=== PATIENT | female | born 1990 | race Caucasian/White ===

== ENCOUNTER → 2021-03-29 12:52 | Outpatient (CLI) | payer OTHER, SELFPAY ==
[2021-03-31 22:36] LABS: AFP, Serum 42.6 ng/mL (.); Calc Gestational Age Ultrasound (.); Estriol, Free 0.87 ng/mL (.); Inhibin A, Dimeric 105.11 pg/mL (.); Inhibin A, MoM 0.84 (.); Maternal Ethnicity Caucasian (.); Maternal Weight 217 lbs (.); Number of Fetuses No (.); OSBR Risk 1 IN 4273 (.); Results Report (.); Test Results *Screen Negative* (.); hCG, MoM 1.31 (.); hCG, Serum 33388 mIU/mL (.)
== END ==
PROVIDERS: Referring Provider Specialist; Visit Provider Specialist
DX: Z34.02 Encounter for supervision of normal first pregnancy, second trimester (principal); Z3A.17 17 weeks gestation of pregnancy
CPT/HCPCS: 36415; 82105; 82677; 84702; 86336

== ENCOUNTER 2021-04-02 19:45 | Emergency (ER) | payer OTHER, SELFPAY ==
[2021-04-02 19:52] VITALS: BP 133/81; PULSE 126; RESP 20; TEMP 37.8; O2SAT 97; BMI 35.6
[2021-04-02 20:16] LABS: Bacteria Urine None Seen; RBC Urine None Seen (0-5/HPF); WBC Urine None Seen (0-5/HPF)
[2021-04-02 20:21] LABS: COVID19 -Nasal RAPID Negative (Negative)
[2021-04-02 20:25] LABS: Bilirubin Urine UA NEGATIVE (NEGATIVE); Color Urine UA YELLOW; Glucose Urine UA NEGATIVE (Negative); Ketones Urine UA TRACE (NEGATIVE); Leukocyte Esterase Urine UA NEGATIVE (NEGATIVE); Nitrite Urine UA NEGATIVE (Negative); Occult Blood Urine UA NEGATIVE (Negative); Protein Urine UA NEGATIVE (Negative); Specific Gravity Urine UA 1.015 (1.000-1.035); Urobilinogen Urine UA 0.2 E.U./dL (0.2)
[2021-04-02 20:26] LABS: Appearance Urine UA CLOUDY; Squamous Epithelial Cell Urine 0-1 /HPF (0-5/HPF)
[2021-04-02 20:27] LABS: Amorphous Sediment Urine 3+; Culture Indicated Urine Cult Not Indicated
[2021-04-02] MEDS: ACETAMINOPHEN 325 MG TABLET 650 MG PO (20:43)
--- NOTE | 2021-04-02 20:46 | ED_ITS ---
HPI - Fever General Chief Complaint: Fever Stated Complaint: Fever/ Time Seen by Provider: 04/02/21 20:39 Source: patient Mode of arrival: Ambulatory Limitations: no limitations History of Present Illness HPI Narrative: 30-year-old woman at 18 weeks gestational age presents complaining of fever since last night, not feeling well general upper abdominal pain today's notice in chills and aches. Nausea but no overt vomiting. She is able to keep fluids down. She is feeling the baby move and has no vaginal discharge, bleeding or cramping. She describes no cough or chest pain. She also notes that along the bra line on the left side in the mid axillary area she has an area of erythema that was draining earlier today Related Data Home Medications Medication Instructions Recorded Confirmed calcium carbonate 600 mg calcium 600 mg PO DAILY 03/08/21 03/09/21 (1,500 mg) tablet (Calcium) prenat.vits,silvina,pto-dfor-stzys 1 tab PO DAILY 03/08/21 03/09/21 Previous Rx's Medication Instructions Recorded cephalexin 500 mg capsule 500 mg PO TID 5 Days #15 cap 04/02/21 Allergies Allergy/AdvReac Type Severity Reaction Status Date / Time No Known Drug Allergies Allergy Unverified 03/08/21 14:31 Review of Systems Review of Systems Narrative: Remainder of complete review of systems is otherwise unremarkable except for that included in the HPI. Patient History Medical History Ovarian cyst (~01/2021) Surgical History Edson teeth extracted (~2011) Family History Father Hypertension Hyperlipidemia Twin Mother Migraine Grandfather Drowning Grandmother Heavy tobacco smoker COPD (chronic obstructive pulmonary disease) Grandfather Myocardial infarction Grandmother Lung cancer Cancer Family/Other Hyperlipidemia Hypertension Brother Chiari malformation Seizures Brother No problems noted. Sister No problems noted. 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 Able to give a complete and coherent history. Well-nourished well-developed HEENT: Moist mucous membranes, normal sclera with reactive pupils, Respiratory: Lungs are clear to auscultation, no wheezing no rales no rhonchi. Full and symmetrical air movement Chest: Mid axillary line left-sided nipple level area of cellulitis approximately 6 x 6 cm. There is a central space that does look like the area drained earlier today there is no palpable abscess remaining. Cardiac: Regular rate and rhythm no murmurs no bruits Abdomen: Soft, fundus just under the umbilicus, nontender, good bowel tones, no flank pain Skin: Warm and dry, no rashes Neurologic: Grossly neurologically intact with no obvious asymmetries or abnormalities Extremities: No trauma, well perfused Psych: Cooperative, appropriate insight and affect Initial Vital Signs Initial Vital Signs: Vital Signs Temperature 100.0 F H 04/02/21 19:52 Pulse Rate 126 H 04/02/21 19:52 Respiratory Rate 20 04/02/21 19:52 Blood Pressure 133/81 04/02/21 19:52 Pulse Oximetry 97 04/02/21 19:52 Course Orders Ordered: Discontinued Medications Acetaminophen (Acetaminophen 325 Mg Tablet) 650 mg PO NOW ONE Stop: 04/02/21 20:40 Last Admin: 04/02/21 20:43 Dose: 650 mg Documented by: CHRISTIN Sodium Chloride (Normal Saline 0.9%) 1,000 mls @ 1,000 mls/hr IV BOLUS ONE Stop: 04/02/21 21:55 Last Infusion: 04/02/21 22:19 Dose: 0 mls/hr Documented by: Admin: 04/02/21 21:18 Dose: 1,000 mls/hr Documented by: TARIK Ceftriaxone Sodium 2,000 mg/ (Sodium Chloride) 100 mls @ 200 mls/hr IV NOW ONE Stop: 04/02/21 20:58 Last Infusion: 04/02/21 21:52 Dose: 0 mls/hr Documented by: Admin: 04/02/21 21:19 Dose: 200 mls/hr Documented by: TARIK Vital Signs Vital signs: Vital Signs - 8 hr 04/02/21 19:52 04/02/21 21:49 Temperature 100.0 F H 97.7 F Pulse Rate 126 H Respiratory Rate 20 Blood Pressure 133/81 Pulse Oximetry 97 MDM - Fever Lab Data Result diagrams: 04/02/21 21:10 04/02/21 21:10 Labs: Lab Results 04/02/21 04/02/21 04/02/21 Range/Units 20:00 20:10 21:10 WBC 8.5 (4.5-11.0) X10^3/uL RBC 4.23 (4.0-5.2) X10^6/uL Hgb 12.5 (12.0-16.0) g/dL Hct 36.7 (36-46) % MCV 86.8 (80-100) fL MCH 29.6 (26-34) PG MCHC 34.1 (30-36) % RDW 13.1 (11.6-14.8) % Plt Count 194 (150-400) X10^3/uL Neut % (Auto) 77.1 H (50-75) % Lymph % (Auto) 9.0 L (25-40) % [place] % (Auto) 9.4 (3-14) % Eos % (Auto) 3.9 (2-4) % Baso % (Auto) 0.6 (0-2) % Neut # (Auto) 6600 (6355-0749) /uL Lymph # (Auto) 800 L (2291-1707) /uL [place] # (Auto) 800 (0-900) /uL Eos # (Auto) 300 (0-450) /uL Baso # (Auto) 0 (0-100) /uL Sodium (137-145) mmol/L Potassium (3.4-5.1) mmol/L Chloride (98-107) mmol/L Carbon Dioxide (22-32) mmol/L BUN (7-17) mg/dL Creatinine (0.52-1.04) mg/dL Estimated GFR (>60) mL/min BUN/Creatinine Ratio (6-22) Glucose (70-100) mg/dL Lactate (0.7-2.1) mmol/L Calcium (8.4-10.2) mg/dL Total Bilirubin (0.2-1.3) mg/dL AST (14-36) IU/L ALT (<35) IU/L Alkaline Phosphatase (38-126) U/L Total Protein (6.3-8.2) g/dL Albumin (3.5-5.0) g/dL Globulin (1.7-4.1) g/dL Albumin/Globulin Ratio (1.0-2.8) Urine Color Yellow Urine Appearance Cloudy Urine pH 8.0 (4.5-8.0) Ur Specific [place] 1.015 (1.000-1.035) Urine Protein Negative (Negative) Urine Glucose (UA) Negative (Negative) g/dL Urine Ketones Trace H (NEGATIVE) Urine Occult Blood Negative (Negative) Urine Nitrate Negative (Negative) Urine Bilirubin Negative (NEGATIVE) Urine Urobilinogen 0.2 (0.2) E.U./dL Ur Leukocyte Esterase Negative (NEGATIVE) Urine RBC None seen (0-5/HPF) Urine WBC None seen (0-5/HPF) Ur Squamous Epith Cells 0-1 /hpf (0-5/HPF) Amorphous Sediment 3+ Urine Bacteria None seen (None) Ur Culture Indicated? Cult not indicated SARS-CoV-2 (PCR) Negative (Negative) 04/02/21 04/02/21 Range/Units 21:10 21:10 WBC (4.5-11.0) X10^3/uL RBC (4.0-5.2) X10^6/uL Hgb (12.0-16.0) g/dL Hct (36-46) % MCV (80-100) fL MCH (26-34) PG MCHC (30-36) % RDW (11.6-14.8) % Plt Count (150-400) X10^3/uL Neut % (Auto) (50-75) % Lymph % (Auto) (25-40) % [place] % (Auto) (3-14) % Eos % (Auto) (2-4) % Baso % (Auto) (0-2) % Neut # (Auto) (5765-2487) /uL Lymph # (Auto) (2249-4062) /uL [place] # (Auto) (0-900) /uL Eos # (Auto) (0-450) /uL Baso # (Auto) (0-100) /uL Sodium 131 L (137-145) mmol/L Potassium 3.6 (3.4-5.1) mmol/L Chloride 105 (98-107) mmol/L Carbon Dioxide 19 L (22-32) mmol/L BUN 7 (7-17) mg/dL Creatinine 0.58 (0.52-1.04) mg/dL Estimated GFR > 60.0 (>60) mL/min BUN/Creatinine Ratio 12.1 (6-22) Glucose 107 H (70-100) mg/dL Lactate 0.7 (0.7-2.1) mmol/L Calcium 9.0 (8.4-10.2) mg/dL Total Bilirubin 0.4 (0.2-1.3) mg/dL AST 30 (14-36) IU/L ALT 36 H (<35) IU/L Alkaline Phosphatase 68 (38-126) U/L Total Protein 7.0 (6.3-8.2) g/dL Albumin 3.6 (3.5-5.0) g/dL Globulin 3.4 (1.7-4.1) g/dL Albumin/Globulin Ratio 1.1 (1.0-2.8) Urine Color Urine Appearance Urine pH (4.5-8.0) Ur Specific [place] (1.000-1.035) Urine Protein (Negative) Urine Glucose (UA) (Negative) g/dL Urine Ketones (NEGATIVE) Urine Occult Blood (Negative) Urine Nitrate (Negative) Urine Bilirubin (NEGATIVE) Urine Urobilinogen (0.2) E.U./dL Ur Leukocyte Esterase (NEGATIVE) Urine RBC (0-5/HPF) Urine WBC (0-5/HPF) Ur Squamous Epith Cells (0-5/HPF) Amorphous Sediment Urine Bacteria (None) Ur Culture Indicated? SARS-CoV-2 (PCR) (Negative) MDM Narrative Medical decision making narrative: 30-year-old woman at 18 weeks gestational age presents with concerns for fever during . COVID screening is negative. No evidence of UTI. Noted drained abscess in the left axilla earlier today with expanding cellulitis. I suspect that is the source of her fever. There is no evidence of sepsis. She is given 2 g of IV ceftriaxone in the emergency department and will need an additional 5 days of cephalexin. Discharge Plan Departure Patient Disposition: Home Clinical Impression: Cellulitis Qualifiers: Site of cellulitis: trunk Site of cellulitis of trunk: chest wall Qualified Code(s): L03.313 - Cellulitis of chest wall Qualifiers: Weeks of gestation: 18 weeks Qualified Code(s): Z3A.18 - 18 weeks gestation of Instructions: DI for Cellulitis -- Adult Activity Restrictions/Additional Instructions: Thank you for coming in today I believe that your fevers result of the abscess and cellulitis on the side by your breast. I am glad this drained today. There is no evidence of collected abscess at this time and this does not need to be opened up in the emergency department. Your given IV ceftriaxone in the emergency department and do need to complete an additional 5 days of Keflex. 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 Your blood work was reassuring, there is no evidence of overwhelming infection or bladder infection. Please follow-up with your OB doctor I hope the rest of her goes well Prescriptions: New cephalexin 500 mg capsule 500 mg PO TID 5 Days Qty: 15 RF: 0 No Action prenat.vits,silvina,[id number]-wvgb-[id number] Tablet 1 tab PO DAILY RF: 0 calcium carbonate [Calcium 600] 600 mg calcium (1,500 mg) tablet 600 mg PO DAILY RF: 0 Referrals: Ana Paula Gloria MD [Primary Care Provider] -
[2021-04-02] MEDS: SODIUM CHLORIDE 0.9% 1,000 ML 1000 ML IV (21:18)
[2021-04-02] MEDS: cefTRIAXone 2,000 MG in SODIUM CHLORIDE 0.9% 100 ML 200 ML IV (21:19)
[2021-04-02 21:25] LABS: Add Manual Diff / Slide Review NO; Basophils Absolute Auto 0 /uL (0-100); Basophils Percent Auto 0.6 % (0-2); Eosinophils Absolute Auto 300 /uL (0-450); Eosinophils Percent Auto 3.9 % (2-4); Hematocrit 36.7 % (36-46); Hemoglobin 12.5 g/dL (12.0-16.0); Lymphocytes Absolute Auto 800 /uL (1100-4500); Mean Corpuscular HGB Conc 34.1 % (30-36); Mean Corpuscular Hemoglobin 29.6 PG (26-34); Mean Corpuscular Volume 86.8 fL (80-100); Monocytes Absolute Auto 800 /uL (0-900); Monocytes Percent Auto 9.4 % (3-14); Neutrophils Absolute Auto 6600 /uL (1500-7000); Neutrophils Percent Auto 77.1 % (50-75); Platelet Count 194 X10^3/uL (150-400); Red Blood Cell Count 4.23 X10^6/uL (4.0-5.2); Red Cell Distribution Width 13.1 % (11.6-14.8); White Blood Cell Count 8.5 X10^3/uL (4.5-11.0)
[2021-04-02 21:36] LABS: Lactate (Lactic Acid) 0.7 mmol/L (0.7-2.1)
[2021-04-02 21:37] LABS: Alanine Aminotransferase 36 IU/L (<35); Albumin 3.6 g/dL (3.5-5.0); Albumin Globulin Ratio 1.1 (1.0-2.8); Alkaline Phosphatase 68 U/L (38-126); Aspartate Aminotransferase 30 IU/L (14-36); BUN Creatinine Ratio 12.1 (6-22); Bilirubin Total 0.4 mg/dL (0.2-1.3); Blood Urea Nitrogen 7 mg/dL (7-17); Carbon Dioxide 19 mmol/L (22-32); Chloride 105 mmol/L (98-107); Estimated Glomerular Filt Rate > 60.0 mL/min (>60); Globulin 3.4 g/dL (1.7-4.1); Glucose 107 mg/dL (70-100); HEMOLYSIS < 15 (0-50); Potassium 3.6 mmol/L (3.4-5.1); Sodium 131 mmol/L (137-145)
[2021-04-02 21:49] VITALS: TEMP 36.5
[2021-04-02 22:27] VITALS: BP 122/65; PULSE 85; RESP 18; TEMP 36.2; O2SAT 96
== END 2021-04-02 22:29 | disposition home or self-care (01) ==
PROVIDERS: Emergency Provider Emergency Medicine; PCP Specialist
DX: O26.92 Pregnancy related conditions, unspecified, second trimester (principal); L03.313 Cellulitis of chest wall; R50.9 Fever, unspecified; R10.10 Upper abdominal pain, unspecified; R11.0 Nausea; Z20.822 Contact with and (suspected) exposure to COVID-19; Z3A.18 18 weeks gestation of pregnancy
CPT/HCPCS: 36415; 80053; 81001; 83605; 85025; 87040; 87086; 87635; 96365; 99284; C9803; J0696

== ENCOUNTER → 2021-04-29 12:06 | Outpatient (CLI) | payer OTHER, SELFPAY ==
--- NOTE | 2021-04-29 12:06 | DI.US.S_ITS ---
PROCEDURE: US OB >= 14 WEEKS FETUS INDICATIONS: ANATOMY OUTSIDE/PRIOR DATING DATA: Last menstrual period (LMP): November 29, 2020. LMP-based estimated date of delivery (OLEKSNADR): September 15, 2021. First dating scan (date and location): March 09, 2021. Estimated date of delivery (OLEKSANDR) from first dating scan: September 03, 2020. TECHNIQUE: Real-time scanning was performed of the fetus, with image documentation and biometric measurements. Endovaginal scanning: Performed COMPARISON: [facility], , OB >= 14 WEEKS FETUS, 03/29/2021, 12:19. [facility], , OB >= 14 WEEKS FETUS, 03/09/2021, 9:23. FINDINGS: General: A single living intrauterine gestation is present. Presentation: Transverse head to maternal right. Placenta: Placental position is anterior, without previa. Amniotic fluid index: 11.4 cm, normal range is 5-24 cm. heart rate: 143 beats per minute. Maternal cervical canal: Closed and 5.7 cm long. Normal lower limit is 2.5 cm. biometrics: Biparietal diameter: 20 weeks 6 days Head circumference: 21 weeks 0 days Abdominal circumference: 22 weeks 4 days Femur length: 21 weeks 4 days Estimated gestational age from initial scan: 21 weeks 6 days. Composite gestational age from present scan: 24 weeks 4 days Estimated weight and percentile: 467 grams; 51st percentile Measurement variability for biometric dating: +/- 7 days from 14 weeks to 15 weeks 6 days gestation, +/- 10 days from 16 weeks to 21 weeks 6 days gestation, +/- 2 weeks from 22 weeks to 27 weeks 6 days gestation, +/- 3 weeks for 28 weeks gestation or later. weight reference: 4500 g or EFW >90/95% is considered macrosomia or large for gestational age. EFW <10% is small for gestational age. EFW 5% or less is considered intra-uterine growth restriction. Anatomic survey: Neuro: Ventricles are non-dilated at less than 10 mm. Cisterna magna is normal at 3-11 mm. Cerebellum is normal in size and morphology. Nuchal skin fold: Normal at less than 6 mm between 14-21 weeks gestational age. Face: Nose and lips, facial profile are normal. Spine: No evidence for spina bifida. Heart: 4-chambered heart is present, with normal ventricular outflow tracts. Diaphragm: Diaphragm is intact. Stomach: Left-sided stomach is present. Kidneys: No hydronephrosis. Normal is less than 5 mm in 2nd trimester, less than 7 mm in 3rd trimester. Cord: 3-vessel cord has orthotopic insertion. Bladder: Normal in size. Extremities: All 4 extremities identified. IMPRESSION: 1. Single living intrauterine with appropriate interval growth. 2. Normal anatomic survey. Dictated by: Kathy Mantilla MD, PhD on 05/03/2021 at 12:05 Approved by: Kathy Mantilla MD, PhD on 05/03/2021 at 12:08
== END ==
PROVIDERS: PCP Specialist; Referring Provider Specialist; Visit Provider Specialist
DX: Z36.89 Encounter for other specified antenatal screening; Z3A.24 24 weeks gestation of pregnancy
CPT/HCPCS: 76811

== ENCOUNTER → 2021-05-24 11:32 | Outpatient (CLI) | payer OTHER, SELFPAY ==
[2021-05-24 13:14] LABS: Hematocrit 35.5 % (36-46); Hemoglobin 11.7 g/dL (12.0-16.0)
[2021-05-24 13:36] LABS: GTT (PREG) 1 Hour PP 50gm Dose 93 mg/dL (76-139)
== END ==
PROVIDERS: PCP Specialist; Referring Provider Specialist; Visit Provider Specialist
DX: Z34.02 Encounter for supervision of normal first pregnancy, second trimester (principal); Z3A.21 21 weeks gestation of pregnancy
CPT/HCPCS: 36415; 82950; 85014; 85018

== ENCOUNTER 2021-07-26 17:47 | Observation (INO) | payer OTHER, SELFPAY ==
[2021-07-26] VITALS (10 sets, daily range): BP systolic 97–141; BP diastolic 47–79; PULSE 73–97; RESP 16–18; TEMP 36.2; O2SAT 93–100
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
[2021-07-26 18:04] LABS: Add Manual Diff / Slide Review NO; Basophils Absolute Auto 0 /uL (0-100); Basophils Percent Auto 0.2 % (0-2); Eosinophils Absolute Auto 100 /uL (0-450); Eosinophils Percent Auto 1.2 % (2-4); Hematocrit 35.5 % (36-46); Lymphocytes Absolute Auto 1900 /uL (1100-4500); Lymphocytes Percent Auto 21.5 % (25-40); Mean Corpuscular HGB Conc 33.8 % (30-36); Mean Corpuscular Hemoglobin 28.2 PG (26-34); Mean Corpuscular Volume 83.4 fL (80-100); Monocytes Absolute Auto 900 /uL (0-900); Monocytes Percent Auto 10.9 % (3-14); Neutrophils Absolute Auto 5700 /uL (1500-7000); Neutrophils Percent Auto 66.2 % (50-75); Platelet Count 280 X10^3/uL (150-400); Red Blood Cell Count 4.25 X10^6/uL (4.0-5.2); Red Cell Distribution Width 13.3 % (11.6-14.8); White Blood Cell Count 8.6 X10^3/uL (4.5-11.0)
[2021-07-26 18:14] LABS: Alanine Aminotransferase 22 IU/L (<35); Albumin 3.9 g/dL (3.5-5.0); Albumin Globulin Ratio 1.1 (1.0-2.8); Alkaline Phosphatase 100 U/L (38-126); Amylase 101 U/L (30-110); Aspartate Aminotransferase 26 IU/L (14-36); BUN Creatinine Ratio 20.3 (6-22); Bilirubin Total 0.4 mg/dL (0.2-1.3); Blood Urea Nitrogen 12 mg/dL (7-17); Calcium 9.6 mg/dL (8.4-10.2); Carbon Dioxide 24 mmol/L (22-32); Chloride 104 mmol/L (98-107); Estimated Glomerular Filt Rate > 60.0 mL/min (>60); Globulin 3.5 g/dL (1.7-4.1); Glucose 96 mg/dL (70-100); HEMOLYSIS < 15 (0-50); Lipase 171 U/L (23-300); Potassium 3.7 mmol/L (3.4-5.1); Sodium 136 mmol/L (137-145); Total Protein 7.4 g/dL (6.3-8.2)
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
[2021-07-26] MEDS: SODIUM CHLORIDE 0.9% 1,000 ML 1000 ML IV (18:16)
--- NOTE | 2021-07-26 19:19 | PC.NURSE ---
Reactive/ catagory 1 NST heart rate -254, with accelerations and no decelerations. Contractions 1.5-7 minutes apart, lasting for 40-60 seconds. Patient denies feeling any contractions. Patient states she does not feel any loss of fluid / bleeding, but has yet to be up to bathroom.
[2021-07-26] MEDS: ACETAMINOPHEN 325 MG TABLET 975 MG PO (20:59)
--- NOTE | 2021-07-26 21:53 | DI.US.S_ITS ---
PROCEDURE: US OB TRANSVAGINAL INDICATIONS: CERVICAL LENGTH OUTSIDE/PRIOR DATING DATA: Last menstrual period (LMP): November 29, 2020. LMP-based estimated date of delivery (OLEKSANDR): September 15, 2021. First dating scan (date and location): March 09, 2021. Estimated date of delivery (OLEKSANDR) from first dating scan: September 03, 2021. TECHNIQUE: Multiple grayscale images of the maternal cervix were acquired transvaginally to evaluate for cervical length. COMPARISON: None. FINDINGS: A single intrauterine gestation is present. Presentation: Vertex Maternal cervix: Endovaginal measurement of cervical length measures 4.5 cm. IMPRESSION: Maternal cervical length measures 4.5 cm by transvaginal imaging. Dictated by: Misael Seals M.D. on 07/26/2021 at 23:41 Approved by: Misael Seals M.D. on 07/26/2021 at 23:44
[2021-07-26] MEDS: NIFEdipine 10 MG CAPSULE PO ×3 (22:41→23:20)
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
[2021-07-26] MEDS: LACTATED RINGERS 500 ML 1000 ML IV (22:50)
== END 2021-07-26 23:46 | disposition home or self-care (01) ==
LOC: ED 20:37 → LABOR 21:41
PROVIDERS: Admitting Provider Obstetrics & Gynecology; Emergency Provider Emergency Medicine; PCP Specialist; Referring Provider Obstetrics & Gynecology; Visit Provider Obstetrics & Gynecology
DX: O26.893 Other specified pregnancy related conditions, third trimester (principal); M54.50 Low back pain, unspecified; O47.03 False labor before 37 completed weeks of gestation, third trimester; V89.2XXA Person injured in unspecified motor-vehicle accident, traffic, initial encounter; Z3A.34 34 weeks gestation of pregnancy
CPT/HCPCS: 59025; 59050; 71045; 76700; 76815; 76817; 80053; 81003; 82150; 83690; 85025; 96360; 99284; G0378